=== PATIENT | male | born 1990 | race Hispanic/Latino ===

== ENCOUNTER 2017-06-07 21:19 | Emergency (ER) | payer OTHER ==
[2017-06-07] MEDS ORDERED: IBUPROFEN 400 MG TAB ONE (22:53)
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
[2017-06-08 00:04] LABS: Urine Blood NEGATIVE (NEG); Urine Glucose NEGATIVE (NEG); Urine Protein NEGATIVE (NEG)
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
== END 2017-06-08 01:00 | disposition home or self-care (01) ==
LOC: ER 21:19
DX: S16.1XXA Strain of muscle, fascia and tendon at neck level, initial encounter (principal); M54.5 Low back pain; V89.2XXA Person injured in unspecified motor-vehicle accident, traffic, initial encounter
CPT/HCPCS: 70450; 71250; 72125; 81003; 99284